=== PATIENT | female | born 1970 | race Hispanic/Latino ===

== ENCOUNTER → 2024-06-13 07:12 | Outpatient (REF) | payer OTHER, SELFPAY ==
[2024-06-13 08:07] LABS: % Basophils 0.5 % (0-2); % Eosinophils 4.2 % (0-6); % Immature Granulocytes 0.2 % (0-0.5); % Lymphocytes 40.6 % (20.5-51.1); % Monocytes 7.2 % (1.7-9.3); % Neutrophils 47.3 % (42.2-75.2); Absolute Eosinophils 0.2 10^3/uL (0-0.7); Absolute Lymphocytes 1.8 10^3/uL (1.2-3.4); Absolute Monocytes 0.3 10^3/uL (0.1-0.6); Hematocrit 41.8 % (37.0-47.0); Hemoglobin 14.4 g/dL (12.0-16.0); Mean Corp Hgb Conc. 34.4 g/dL (33.0-37.0); Mean Corpuscular Hgb 29.3 pg (27.0-31.0); Mean Platelet Volume 9.6 fL (7.4-10.4); Nucleated Red Blood Cells % 0 %; Platelet Count 243 10^3/uL (130-400); Red Blood Cell Count 4.92 10^6/uL (4.20-5.40); Reticulocyte Count 1.2 % (0.4-2.8); Urine Albumin Negative (Neg - Trace); Urine Bilirubin Negative (Negative); Urine Character Clear (Clear); Urine Color Yellow; Urine Glucose Negative (Negative); Urine Ketone Negative (Negative); Urine Leukocyte Negative (Negative); Urine Nitrite Negative (Negative); Urine Occult Blood Negative (Negative); Urine Specific Gravity 1.025 (<1.030); Urine Urobilinogen Negative (Neg - 1+); White Blood Cell Count 4.3 10^3/uL (4.8-10.8)
[2024-06-13 08:41] LABS: ALT (SGPT) 16 U/L (0-35); AST (SGOT) 24 U/L (14-36); Albumin 4.5 g/dl (3.5-5.0); Alkaline Phosphatase 69 U/L (38-126); Blood Urea Nitrogen 16 mg/dl (7-17); Carbon Dioxide 27 mmol/L (22-30); Chloride 103 mmol/L (98-107); Glucose 91 mg/dl (70-99); HDL Cholesterol 69 mg/dl; LDL Cholesterol, Calculated 45 mg/dl; Potassium 4.4 mmol/L (3.5-5.1); Sodium 143 mmol/L (135-145); Total Bilirubin 0.6 mg/dl (0.2-1.3); Total Cholesterol 122 mg/dl (50-199); Total Protein 7.1 g/dl (6.3-8.2); Triglyceride 43 mg/dl (10-149); Very Low Density Lipoprotein 8 mg/dl (0-30); eGFR > 60.00
[2024-06-13 09:04] LABS: Glycohemoglobin (HgbA1c) 5.3 % (4.0-5.6)
[2024-06-13 09:09] LABS: TSH Reflex To Free T4 1.28 uIU/ml (0.47-4.68)
== END ==
LOC: CLINIC 07:12
PROVIDERS: ATTENDING PHYSICIAN Internal Medicine
DX: Z13.1 Encounter for screening for diabetes mellitus (principal)
CPT/HCPCS: 36415; 80053; 80061; 81003; 83036; 84443; 85025; 85045

== ENCOUNTER → 2024-06-15 07:26 | Outpatient (REF) | payer OTHER, SELFPAY ==
[2024-06-17 16:07] LABS: FIT-Fecal Occult Blood Interp Negative
== END ==
LOC: CLINIC 07:26
PROVIDERS: ATTENDING PHYSICIAN Internal Medicine
DX: Z13.1 Encounter for screening for diabetes mellitus (principal)
CPT/HCPCS: 83520

== ENCOUNTER → 2024-08-17 07:40 | Outpatient (REF) | payer OTHER, SELFPAY | LOC: RCS 07:40 | PROVIDERS: ATTENDING PHYSICIAN Internal Medicine; FAMILY PHYSICIAN Nurse Practitioner Adult Health | DX: R52 Pain, unspecified (principal); R07.89 Other chest pain; R00.2 Palpitations | CPT/HCPCS: 93225; 93226 ==

== ENCOUNTER → 2024-08-21 11:06 | Outpatient (REF) | payer OTHER, SELFPAY | LOC: HWRCS 11:06 | PROVIDERS: ATTENDING PHYSICIAN Internal Medicine | DX: R07.89 Other chest pain (principal); R00.2 Palpitations | CPT/HCPCS: 93306 ==

== ENCOUNTER 2024-08-22 10:02 | Emergency (ER) | payer SELFPAY ==
[2024-08-22 10:29] VITALS: BP 139/91
[2024-08-22 10:53] LABS: % Basophils 0.4 % (0-2); % Eosinophils 3.9 % (0-6); % Immature Granulocytes 0.2 % (0-0.5); % Lymphocytes 34.7 % (20.5-51.1); % Neutrophils 53.8 % (42.2-75.2); Absolute Eosinophils 0.2 10^3/uL (0-0.7); Absolute Lymphocytes 1.6 10^3/uL (1.2-3.4); Absolute Monocytes 0.3 10^3/uL (0.1-0.6); Absolute Neutrophils 2.5 10^3/uL (1.4-6.5); Hemoglobin 14.6 g/dL (12.0-16.0); Mean Corpuscular Hgb 29.7 pg (27.0-31.0); Mean Corpuscular Volume 87.4 fL (81.0-99.0); Mean Platelet Volume 9.1 fL (7.4-10.4); Nucleated Red Blood Cells % 0 %; Platelet Count 233 10^3/uL (130-400); Red Blood Cell Count 4.92 10^6/uL (4.20-5.40); Red Cell Dist. Width 12.9 % (11.5-14.5); White Blood Cell Count 4.6 10^3/uL (4.8-10.8)
[2024-08-22 11:04] LABS: ALT (SGPT) 16 U/L (0-35); AST (SGOT) 23 U/L (14-36); Albumin 4.5 g/dl (3.5-5.0); Alkaline Phosphatase 66 U/L (38-126); Blood Urea Nitrogen 13 mg/dl (7-17); Calcium 8.9 mg/dl (8.4-10.2); Carbon Dioxide 28 mmol/L (22-30); Chloride 103 mmol/L (98-107); Glucose 112 mg/dl (70-99); Sodium 140 mmol/L (135-145); Total Bilirubin 0.8 mg/dl (0.2-1.3); Total Protein 7.1 g/dl (6.3-8.2); eGFR > 60.00
[2024-08-22 11:12] LABS: Troponin I < 0.012 ng/ml
[2024-08-22 13:12] VITALS: BP 122/62
[2024-08-22 13:38] LABS: Troponin I < 0.012 ng/ml
[2024-08-22 13:44] VITALS: BP 118/55
[2024-08-22 13:46] LABS: D-Dimer < 0.27 ug/mlFEU (0.00-0.50)
--- NOTE | 2024-08-22 14:17 | ED.GENMED ---
History of Present Illness
General
Chief Complaint: Chest Pain
Source: patient
Exam Limitations: none
Time Seen by Provider: 08/22/24 12:31
Nursing documentation reviewed up to this point in time: agreed with
History of Present Illness
History of Present Illness:
54-year-old female with no significant chronic medical issues presents to the emergency room for evaluation of chest pain. Patient reports that this has been an on and off issue for the past few weeks. She reports that she will get a tightness in
the center of her chest. She says that she had an episode that was very severe where she also had radiation to her arms and to her left neck. She says that she will sometimes have associated lightheadedness and shortness of breath. She
says that she saw her primary doctor and was referred to cardiology (Dr. Delgado) and she had an echocardiogram scheduled for Saturday as part of a workup for the symptoms; she also had a 48-hour Holter monitor earlier this month. After the episode
on she still went for her echocardiogram on Saturday�report was reviewed and echocardiogram normal. She says that she has continued to have on and off symptoms and today she had another severe episode and she decided to come to the ER to be
evaluated. At the time of my assessment she is chest pain-free. There is no exertional component to the symptoms. No associated nausea, vomiting, diaphoresis. She has not had any recent cough, fevers, chills. She denies any swelling or pain in
the legs. She denies any other complaints.
Review of Systems
Review of Systems
All Other Systems: ROS reviewed and negative except as documented in HPI and ROS
Constitutional: Denies fever or chills
Respiratory: Reports trouble breathing; Denies cough
Cardiac: Reports chest pain; Denies diaphoresis, palpitations or syncope
ABD/GI: Denies abdominal pain, nausea or vomiting
: Denies flank pain
Musculoskeletal: Denies edema
Neurological: Reports dizzy; Denies headache
Phy Exam
Physical Exam
Physical Exam:
General: Awake, alert, oriented x3 and very well-appearing; no acute distress
Head: Normocephalic, atraumatic
Eyes: Conjunctiva normal, sclera anicteric
Throat: Airway intact, handling secretions
Neck: Trachea midline, supple without meningismus
Lungs: Clear to auscultation bilaterally, no wheezing, rales, rhonchi
Heart: Regular rate and rhythm, no murmurs, gallops, or rubs
Abd: Soft, non distended, nontender
Neuro: No gross deficits
Skin: no rash
Extremities: No edema in extremities, equal pulses in all extremities
Scores
Heart Failure Risk
Heart Failure Risk Score: Not Applicable
Heart Score for Chest Pain Patients
STEMI patient?: No
History: Moderately Suspicious
ECG: Normal
Age: >45 - <65 years
Risk Factors: No Risk Factors
Troponin: </= Normal Limit
Heart Score for Chest Pain Patients: 2
Heart Score Risk: 2.5% MACE over next 6 weeks
Withdrawal Assessment of Alcohol
Withdrawal Assessment Completed?: Not applicable
Course
Orders/Labs/Results
Orders:
Orders
08/22/24 10:03
EKG [Electrocardiogram (*1)] Urgent
Reason for Study: Chest Pain
EKG- Treatment ONCE
08/22/24 10:22
Electrocardiogram (*1) Urgent
Reason for Study: Chest Pain
EKG- Treatment ONCE
08/22/24 10:43
Complete Blood Count/With Diff Urgent
Comprehensive Metabolic Panel Urgent
Troponin I Urgent
08/22/24 12:40
CR Chest - 2 Views Urgent
Comment:
Reason For Exam: chest pain
08/22/24 12:50
D-Dimer Urgent
Troponin I Urgent
Abnormal Lab Results
08/22/24
10:43
WBC 4.6 L 10^3/uL
(4.8-10.8)
Glucose 112 H mg/dl
(70-99)
08/22/24 10:43
08/22/24 10:43
Vital Signs
Initial and Last Documented VS:
Initial Vital Signs
Temp Pulse Resp BP Pulse Ox
37.1 C 91 16 139/91 98
08/22/24 10:29 08/22/24 10:29 08/22/24 10:29 08/22/24 10:29 08/22/24 10:29
Last Documented Vital Signs
Temp Pulse Resp BP Pulse Ox
37.1 C 85 20 118/55 99
08/22/24 10:29 08/22/24 13:44 08/22/24 13:44 08/22/24 13:44 08/22/24 13:44
MDM/Problems Addressed
Differential Diagnosis Includes:
Angina/ACS, GERD, costochondritis, anxiety, PE less likely, dissection less likely
MDM/Problems Addressed:
54-year-old female presents for evaluation of intermittent chest pain for the past few weeks; she has had 2 more intense episodes over the past few days while in the midst of workup for her symptoms through cardiology. She had a 48-hour Holter
monitor which showed a few short episodes of atrial tachycardia but no other significant events. She had an echocardiogram yesterday that was normal. Her EKG here shows sinus rhythm with no acute ischemic changes. Labs are soft in triage
including a CBC and a CMP which were unremarkable. She had a troponin which was undetectable x 1�will repeat. Check D-dimer. Check a chest x-ray. Monitor on telemetry. Reassess after the above.
Troponin serially undetectable. D-dimer negative. Chest x-ray negative for any acute pathology. Patient remains asymptomatic on clinical reassessment. Her vital signs have been stable. At this point I have low suspicion for emergent pathology.
Her symptoms are atypical for angina she has no exertional symptoms they are quite sporadic. She is scheduled for stress test on Saturday (3 days) and is already plugged into cardiology. She already had a reassuring echocardiogram. At this point I
do not think there is any indication for hospital admission. I think it is likely that her symptoms are noncardiac, possibly GERD/PUD. I think will be reasonable to start on PPI while awaiting cardiac workup. She will call cardiology on Saturday to
update. In the meantime advised to avoid any strenuous activity and return with worsening symptoms. She feels very comfortable with this. All questions answered
*Radiology
Radiology exam reviewed: preliminary read by ED provider and radiology read reviewed
*Pulse Oximetry
Patient hypoxic: no
*EKG
Interpreted by ED Provider?: Yes
Heart Rate: 89
Rate: normal
Rhythm: sinus
[place]: normal axis
Interval: normal interval
QRS Pattern: normal QRS
Ischemia: no ischemia
*Critical Care Note
Total Time (30-74mins, 75-104mins- exclusive of procedures): Not Applicable
Data Reviewed
Review of Other/Old Records Reveals: Testing (Reviewed outpatient cardiology testing including Holter monitor and echocardiogram)
Source: patient and records
ED Attending Note
-
Portions of this chart may have been created with voice recognition software.� Occasional wrong word or��sound alike� substitutions may have occurred due to the inherent limitations of voice recognition software.
Discharge Plan
Departure
Patient Disposition: Home (Routine Discharge)
Date of Disposition: 08/22/24
Time of Disposition: 14:24
Patient with high blood pressure during this ER visit?: No
Discharge Problem:
Chest pain
Instructions: Chest Pain CBC Follow Up
Prescriptions:
New
pantoprazole [Protonix] 40 mg tablet,delayed release (DR/EC)
40 mg PO DAILY Qty: 30 0RF
Referrals:
Jean Delgado MD [Active] - Call in 1-3 days for appt
Drew Cobb MD [Family Provider] -
Activity Restrictions/Additional Instructions:
Thank you for visiting the Emergency Department at [facility].
1. Please schedule a follow up appointment as directed. Call first thing tomorrow morning to make an appointment.
2. If indicated, please take your medications as instructed and indicated on discharge paperwork.
3. If any of your symptoms do not improve, or persist, or become more severe within 6-12 hours, please return to the emergency department for further care.
4. Please return to the emergency department if you develop a headache, neck pain/stiffness, fever greater than 100.4F, chest pain, shortness of breath, persistent nausea, vomiting, slurred speech, difficulty walking, numbness/tingling, weakness,
signs of infection or any other symptoms that are worrisome to you.
Please call [phone] if you have any questions.
Interventions
Interventions:
*Risk Screen - Suicide Last Done: 08/22/24 10:29
*Neglect/Abuse Screening Last Done: 08/22/24 10:29
ED- Fall Risk Assessment Last Done: 08/22/24 12:04
ED- Cardiac Assessment Last Done: 08/22/24 12:04
Discharge Date and Time
Print Language: PERSIAN
== END 2024-08-22 17:14 | disposition home or self-care (01) ==
LOC: EMR 10:02
PROVIDERS: Emergency Medicine; EMERGENCY PHYSICIAN Emergency Medicine; FAMILY PHYSICIAN Internal Medicine
DX: R07.89 Other chest pain (principal)
CPT/HCPCS: 99283; 71046; 80053; 84484; 85025; 85379; 93005

== ENCOUNTER → 2024-08-25 08:53 | Outpatient (REF) | payer OTHER, SELFPAY | LOC: RCS 08:53 | PROVIDERS: ATTENDING PHYSICIAN Internal Medicine | DX: R07.89 Other chest pain (principal); R00.2 Palpitations | CPT/HCPCS: 93017; 93350 ==

== ENCOUNTER → 2024-09-09 12:08 | Outpatient (REF) | payer OTHER, SELFPAY | LOC: RAD 12:08 | PROVIDERS: ATTENDING PHYSICIAN Family Medicine | DX: R00.2 Palpitations (principal); R07.89 Other chest pain | CPT/HCPCS: 71275; Q9967 ==

== ENCOUNTER 2025-03-25 11:09 | Emergency (ER) | payer SELFPAY ==
[2025-03-25 11:10] VITALS: BP 133/71
--- NOTE | 2025-03-25 12:55 | ED.GENMED ---
History of Present Illness
General
Chief Complaint: Musculo-Skeletal Complaint
Source: patient and records
Exam Limitations: none
Time Seen by Provider: 03/25/25 12:44
Nursing documentation reviewed up to this point in time: agreed with
History of Present Illness
History of Present Illness:
54-year-old female with no reported chronic medical issues presents to the ER for evaluation of left arm pain. Patient reports onset of symptoms this morning when she woke up around 7 or 7:30 AM and have been constant since that time. She reports
a vague aching pain-- occasionally butning-- in the upper arm from the elbow to the shoulder. Occasionally with certain movements will get a sharp pain shooting from the left side of her neck down the arm on the left. She says that she was
concerned it could be a sign of a heart issue and so she came to the ER for assessment. She denies any associated trauma or injury. She has not had any associated chest pain, shortness of breath. Denies any nausea, vomiting, diaphoresis. No
exertional component to her symptoms. No swelling or pain in the legs. She denies any known cardiac history. Denies smoking, alcohol, drug use.
Review of Systems
Review of Systems
All Other Systems: ROS reviewed and negative except as documented in HPI and ROS
Constitutional: Denies fever
Respiratory: Denies trouble breathing
Cardiac: Denies chest pain or diaphoresis
ABD/GI: Denies abdominal pain, nausea or vomiting
: Denies flank pain
Musculoskeletal: Reports muscle pain (Left arm pain) and neck pain (Occasionally will have pain radiating from the neck); Denies back pain
Neurological: Denies dizzy, headache, weakness or numbness
Phy Exam
Physical Exam
Physical Exam:
General: Awake, alert, oriented x3; no acute distress
Head: Normocephalic, atraumatic
Eyes: Conjunctiva normal, sclera anicteric
Throat: Airway intact, handling secretions
Neck: Trachea midline, supple without meningismus; mild tenderness along the left upper trapezius
Lungs: Clear to auscultation bilaterally, no wheezing, rales, rhonchi
Heart: Regular rate and rhythm, no murmurs, gallops, or rubs
Neuro: Cranial nerves grossly intact, speech fluid, motor and sensory intact to radial, median, ulnar nerve distribution left upper extremity
Skin: no rash noted
Extremities: No edema in extremities, equal pulses in all extremities�specifically strong left radial pulse; on exam of the left shoulder she has no clavicular tenderness, no tenderness of the scapula, mild tenderness in the anterior shoulder along
the humeral head; she also has some tenderness along the medial bicep; she has full active range of motion of the left shoulder and left elbow, some mild pain in the left trapezius area on full flexion of the shoulder; no pain on range of motion of
the left wrist including supination and pronation
Scores
Heart Failure Risk
Heart Failure Risk Score: Not Applicable
Heart Score for Chest Pain Patients
STEMI patient?: Not applicable
Withdrawal Assessment of Alcohol
Withdrawal Assessment Completed?: Not applicable
Course
Orders/Labs/Results
Orders:
Orders
03/25/25 11:14
Electrocardiogram (*1) Urgent
Reason for Study: Other
Other Reason for Exam: left arm pain into shoulder and jaw
EKG- Treatment ONCE
03/25/25 13:00
Complete Blood Count/No Diff Urgent
Troponin I Urgent
03/25/25 13:01
Comprehensive Metabolic Panel Urgent
Abnormal Lab Results
03/25/25
13:00
WBC 4.6 L 10^3/uL
(4.8-10.8)
03/25/25 13:00
03/25/25 13:01
Vital Signs
Initial and Last Documented VS:
Initial Vital Signs
Temp Pulse Resp BP Pulse Ox
36.6 C 77 18 133/71 99
03/25/25 11:10 03/25/25 11:10 03/25/25 11:10 03/25/25 11:10 03/25/25 11:10
Last Documented Vital Signs
Temp Pulse Resp BP Pulse Ox
36.6 C 77 18 133/71 99
03/25/25 11:10 03/25/25 11:10 03/25/25 11:10 03/25/25 11:10 03/25/25 12:58
MDM/Problems Addressed
Differential Diagnosis Includes:
Cervical radiculopathy, tendinitis, less likely anginal equivalent/ACS, less likely DVT
MDM/Problems Addressed:
54-year-old female presents with left arm pain since waking up this morning. Vitals and exam as above. Clinically suspect it is likely cervical radiculopathy�patient was concerned it could be cardiac referred pain. EKG shows no significant
changes from prior, not acutely ischemic. Will check troponin in an abundance of caution. In my judgment no indication for emergent imaging she has no point tenderness and pain is more consistent with radicular pain from the cervical spine.
Labs reviewed: CBC and CMP no clinically significant abnormalities, troponin undetectable with consistent symptoms since very early this morning is sufficient to rule out acute ME especially very low clinical suspicion at this is cardiac. Overall
clinical picture is consistent with a cervical radiculopathy will start on Medrol Dosepak advised Tylenol/ibuprofen as needed. Patient stable for discharge. Spoke about return precautions all questions answered.
*Pulse Oximetry
SaO2: 99
Oxygen Mode of Delivery: Room air
Patient hypoxic: no (99%)
*EKG
Interpreted by ED Provider?: Yes
Comparison EKG: no changes
Heart Rate: 69
Rate: normal
Rhythm: sinus
[place]: normal axis
Interval: normal interval
QRS Pattern: normal QRS
Ischemia: no ischemia
*Critical Care Note
Total Time (30-74mins, 75-104mins- exclusive of procedures): Not Applicable
Data Reviewed
Source: patient and records
Further Testing Considered But Not Given:
Considered x-rays of the shoulder/elbow, considered x-ray of the cervical spine
ED Attending Note
-
Portions of this chart may have been created with voice recognition software.� Occasional wrong word or��sound alike� substitutions may have occurred due to the inherent limitations of voice recognition software.
Discharge Plan
Departure
Patient Disposition: Home (Routine Discharge)
Date of Disposition: 03/25/25
Time of Disposition: 13:46
Patient with high blood pressure during this ER visit?: No
Discharge Problem:
Cervical radiculopathy
Instructions: Radiculopathy of the neck and back (including sciatica)
Prescriptions:
New
methylprednisolone [Medrol (Orestes)] 4 mg tablets,dose pack
See Rx Instructions .ROUTE .COMPLEX Qty: 21 0RF
Rx Instructions:
for 6 days
No Action
pantoprazole [Protonix] 40 mg tablet,delayed release (DR/EC)
40 mg PO DAILY Qty: 30 0RF
Referrals:
[facility] [Outside] - Call in 1-3 days for appt
Activity Restrictions/Additional Instructions:
Thank you for visiting the Emergency Department at [facility].
1. Please schedule a follow up appointment as directed. Call first thing tomorrow morning to make an appointment.
2. If indicated, please take your medications as instructed and indicated on discharge paperwork.
3. If any of your symptoms do not improve, or persist, or become more severe within 6-12 hours, please return to the emergency department for further care.
4. Please return to the emergency department if you develop a headache, neck pain/stiffness, fever greater than 100.4F, chest pain, shortness of breath, persistent nausea, vomiting, slurred speech, difficulty walking, numbness/tingling, weakness,
signs of infection or any other symptoms that are worrisome to you.
Please call [phone] if you have any questions.
Interventions
Interventions:
*Risk Screen - Suicide Last Done: 03/25/25 11:20
*General Assessment Last Done: 03/25/25 12:06
*Neglect/Abuse Screening Last Done: 03/25/25 11:20
*ED- Fall Risk Assessment Last Done: 03/25/25 12:06
*ED COVID-19 Vaccine History Last Done: 03/25/25 12:06
ED-Musculoskeletal Assessment Last Done: 03/25/25 12:06
Discharge Date and Time
Print Language: DANISH
[2025-03-25 13:10] LABS: Hematocrit 39.1 % (37.0-47.0); Hemoglobin 13.4 g/dL (12.0-16.0); Mean Corp Hgb Conc. 34.3 g/dL (33.0-37.0); Mean Corpuscular Volume 87.1 fL (81.0-99.0); Platelet Count 199 10^3/uL (130-400); Red Cell Dist. Width 13.0 % (11.5-14.5)
[2025-03-25 13:31] LABS: Troponin I < 0.012 ng/ml
[2025-03-25 13:43] LABS: ALT (SGPT) 12 U/L (0-35); AST (SGOT) 19 U/L (14-36); Albumin 4.2 g/dl (3.5-5.0); Alkaline Phosphatase 71 U/L (38-126); Blood Urea Nitrogen 12 mg/dl (7-17); Calcium 8.8 mg/dl (8.4-10.2); Carbon Dioxide 26 mmol/L (22-30); Chloride 107 mmol/L (98-107); Glucose 85 mg/dl (70-99); Potassium 3.9 mmol/L (3.5-5.1); Sodium 139 mmol/L (135-145); Total Protein 6.6 g/dl (6.3-8.2); eGFR > 60.00
[2025-03-25 13:53] VITALS: BP 130/70
== END 2025-03-25 13:54 | disposition home or self-care (01) ==
LOC: EMR 11:09
PROVIDERS: EMERGENCY PHYSICIAN Emergency Medicine; FAMILY PHYSICIAN Internal Medicine Cardiovascular Disease
DX: M54.12 Radiculopathy, cervical region (principal)
CPT/HCPCS: 99284; 80053; 84484; 85027; 93005